=== PATIENT | male | born 1935 | race Caucasian/White ===

== ENCOUNTER 2016-07-25 22:10 | Inpatient (IN) | payer MEDICARE ==
[2016-07-25 22:40] LABS: ABSOLUTE NEUTROPHIL COUNT 5.6 K/mm3 (1.8-7.7); BASO % 0.3 % (0.2-1.0); EOS # 0.1 (0.0-0.5); EOS % 1.2 % (0.9-2.9); HEMOGLOBIN 9.3 gm/l (14.0-18.0); IMM NEUT% 0.6 % (0-1); LYMPH # 0.3 (1.0-4.8); LYMPH % 4.6 % (15-45); MEAN CELL VOLUME 110.7 fl (80.0-94.0); MEAN CORPUSCULAR HEMOGLOBIN 35.5 pg (27.0-31.0); MEAN CORPUSCULAR HGB CONC 32.1 g/dl (33.0-37.0); MEAN PLATELET VOLUME 9.9 fl (7.4-10.4); MONO # 0.5 (0.0-0.8); MONO % 7.1 % (4-12); NEUT % 86.2 % (43-75); PLATELET COUNT 209 K/mm3 (130-400); RED CELL DISTRIBUTION WIDTH 12.8 % (11.5-14.5)
[2016-07-25 23:17] LABS: ALB/GLOB RATIO 0.9 (>1.0); ALBUMIN 3.2 gm/dL (3.5-5.7); CALCIUM 8.6 mg/dL (8.6-10.3)
[2016-07-26] MEDS ORDERED: SODIUM CHLORIDE 0.9% 1,000 ML ONE ×2 (01:29→16:12)
[2016-07-26 01:54] LABS: SPECIFIC GRAVITY 1.015 (1.001-1.030); URINE APPEARANCE CLEAR; URINE BILIRUBIN NEGATIVE (NEGATIVE); URINE BLOOD TRACE (NEGATIVE); URINE COLOR YELLOW; URINE GLUCOSE (UA) NEGATIVE (NEGATIVE); URINE LEUKOCYTE ESTERASE NEGATIVE (NEGATIVE); URINE NITRITE NEGATIVE (NEGATIVE); URINE PROTEIN TRACE (NEGATIVE); URINE UROBILINOGEN NORMAL (0-1 mg/dl)
[2016-07-26 01:59] LABS: URINE EPITHELIAL CELLS FEW /hpf; URINE WBC NEG /hpf
[2016-07-26 02:00] LABS: URINE AMORPHOUS SEDIMENT FEW; URINE BACTERIA 0
[2016-07-26] MEDS ORDERED: IOPAMIDOL 300 (61%) 150 ML VIAL IV ONE (02:52)
[2016-07-26 03:46] VITALS: BMI 22.1
[2016-07-26] MEDS ORDERED: PNEUMOCOCCAL 23-VAL P-SAC VAC 0.5 ML VIAL IM V ONE (05:00)
[2016-07-26] MEDS ORDERED: BLISTEX LIPSTICK 1 EACH TP PRN (07:47)
[2016-07-26] MEDS ORDERED: BISACODYL 5 MG TABLET.EC PO PRN (07:47)
[2016-07-26] MEDS ORDERED: MAGNESIUM HYDROXIDE 30 ML UDCUP PO PRN (07:47)
[2016-07-26] MEDS ORDERED: SODIUM CHLORIDE 0.9% 100 ML IV PRN (07:47)
[2016-07-26] MEDS ORDERED: MENTHOL/CETYLPYRD 1 EACH LOZENGE PO PRN (07:47)
[2016-07-26] MEDS ORDERED: BISACODYL 10 MG SUP PR PRN (07:47)
--- NOTE | 2016-07-26 08:07 | CT ---
LUMBAR CT WITHOUT CONTRAST HISTORY: Weakness of the lower extremities. No intravenous contrast administered. Contiguous axial images acquired from the lower T11 to upper S3 level. FINDINGS: ALIGNMENT: Trace retrolisthesis at L2-3. DISC SPACES: Multilevel disc space narrowing, moderately severe at L2-3 through L4-5 levels. COMPRESSION DEFORMITY: No dominant compression deformity. Minor superior endplate deformity at T12. FRACTURE: No displaced fracture. DISC DEGENERATION: L5-S1: Minor right paracentral protrusion superimposed on minor disc bulge. L4-5: Diffuse disc bulge diffuse disc bulge with broad-based central to left foraminal protrusion. L3-4: Diffuse disc bulge with broad-based left foraminal/extraforaminal protrusion. L2-3: Diffuse disc bulge with foraminal components. L1-2: No focal herniation is present CANAL STENOSIS: Moderate at the L2-3 and L3-4 levels, severe at the L4-5 level. FACET JOINTS: Early facet degeneration at L3-4 and L4-5 levels. NEURAL FORAMINA: Multilevel neural foraminal narrowing of moderate to severe degree involving the L2-3 through L4-5 levels there is a flattened appearance of the left L2, right L3, and left L4 nerve roots, correlate for multilevel radiculopathy. PARASPINAL SOFT TISSUES: Fibrotic changes of the lung bases. Borderline aneurysmal dilatation of the infrarenal abdominal aorta up to 3.2 cm in caliber. Apparent high attenuation content with in the left renal pelvis and ureter of uncertain significance, correlate for history of prior contrast administration. 2.3 cm fatty adenoma of the left adrenal gland. IMPRESSION: 1. Findings of lumbar spondylosis with multilevel disc degeneration worst at the L2-3 through L4-5 levels, resulting in severe canal stenosis at L4-5, moderately severe canal stenosis at L2-3 and L3-4 levels. Associated moderate to severe foraminal narrowing at these levels. 2. Minor endplate deformity at superior aspect of T12 without dominant compression deformity or retropulsion. 3. Aortic atherosclerotic disease with borderline aneurysmal dilatation of the distal abdominal aorta, 3.2 cm in caliber. 4. High attenuation content within left renal pelvis and ureter, perhaps related to recent contrast administration. 5. Fatty adenoma of the left adrenal gland. 6. Suggested fibrotic/atelectatic change at the lung bases. Preliminary report relayed to the emergency medicine medical service by Dr. Greco on 07/26/2016 at 0019 hours.
--- NOTE | 2016-07-26 08:56 | HP ---
Alejandro Domínguez [id number] DATE OF ADMISSION: 07/26/2016 CHIEF COMPLAINT: Weakness. HISTORY OF PRESENT ILLNESS: The patient is an 81-year-old male who presented for weakness. Outside records suggested that patient has been wobbly since starting Amiodarone March 2016 for treatment of ventricular tachycardia. He reports weakness for months, specifically his legs with poor coordination. He denies any prior symptoms. Has not had any medication changes just recently. It is not clear what prompted the presentation to the emergency room although, he did just complete having a cardiac catheterization. PAST MEDICAL HISTORY: Patient initially indicates nothing, but on review of records shows a history of congestive heart failure with ejection fraction of 45%, systolic congestive heart failure, mitral regurgitation, and a history of V-tach. He has an AICD placed. 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 He has a history of coronary artery disease with myocardial infarction suggested in 2007, PAST SURGICAL HISTORY: He had a CABG 2007, AICD placement 2007, and he just had a cardiac catheterization earlier this month, but results are not available. ALLERGIES: No known drug allergies. MEDICATIONS: Best estimate of medicines is: 1. Amiodarone 100 mg daily. 2. Calcium carbonate with vitamin D 1 by mouth twice daily. 3. Carvedilol 12.5 mg by mouth twice daily. 4. Aranesp 100 mcg subcutaneously monthly. 5. Ferrous sulfate 325 mg daily. 6. Simvastatin 20 mg by mouth every evening. 7. He states he does not take aspirin. 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 Lives in [place]. He is . No kids. Quit smoking 30 years ago. No alcohol. Gnosticism, no particular affiliation. Hobbies none. Pets include two cats. FAMILY HISTORY: He reports his parents both about age 82, but does not have any other details. REVIEW OF SYSTEMS: Eyes are okay. Ears are okay although, he appears to be quite hard of hearing. Nose is okay. Mouth is okay. Neck he states bothers him sometimes. Breathing has been okay. He reports having some chest pain 3 or 4 months ago, but not today, but later does say his chest hurts. No urinary complaints. No vomiting. No diarrhea. No skin complaints. He denies any falls. PHYSICAL EXAMINATION: GENERAL: Nontoxic elderly male who is a questionable historian. He coughs occasionally. VITAL SIGNS: Temperature 98.7, pulse 70, blood pressure 138/68, respirations 20, 95% saturation on room air. HEENT: Head is normocephalic, atraumatic. Eyes are unremarkable. Ears: Hard of hearing, some cerumen noted bilaterally. Nose is unremarkable. Oropharynx difficult to assess due to poor opening, but portion visualized is unremarkable. Dentition normal. NECK: Unremarkable. No masses or jugular venous distention suggested. LUNGS: Fair to good air movement bilaterally. HEART: Regular rate and rhythm. He does cough occasionally. Well healed sternotomy scar on his chest. ABDOMEN: Flat, soft, nontender. Bowel sounds are normal. No bruits are noted. Minimal discomfort epigastric area, but no rebound, no guarding. EXTREMITIES: Lower extremities, no clubbing, cyanosis, or edema. Lower extremities without ulceration. GENITOURINARY: Grossly normal male. He has a large patch on his right inguinal area from his cardiac catheterization. NEURO: Patient's cranial nerves appear to be intact and symmetric. Eyes contact is good. He is hard of hearing, but generally answers correctly, although is only a fair too poor historian. Speech is mostly clear. Gait is not tested. Finger to nose is slow bilaterally, but fairly symmetric. He is oriented except for guesses the date of being 18 instead of 26. Rapid alternating movements somewhat slow, but not particularly abnormal. No clonus is noted. No spasticity is noted. Deep tendon reflexes are modestly more noticeable on the left patella, but otherwise no significant abnormality noted. LABORATORY: White count 6.5, hemoglobin 9.3, platelets 209. Sodium 134, potassium 4.2, chloride 99, CO2 28, BUN 23, creatinine 1.6, glucose 97, calcium 8.6. LFT's normal. Albumin 3.2, globulin 3.5. MCV of 110.7. Urinalysis specific gravity of 1.015, red cells 1-3, negative white cells. DIAGNOSTICS: EKG normal sinus rhythm, right bundle branch block, TN of 145, QRS 190, QTC 499, axis -12. CT of back moderate to severe spinal canal stenosis with neuroforaminal narrowing, mild compression fracture T12, consider evaluate further with MRI. ASSESSMENT AND PLAN: 1. Weakness and difficulty with ambulation. Anticipate physical therapy and occupational therapy evaluation. Consider spinal stenosis and could consider follow up MRI, but also would consider subacute cerebrovascular disease and check CT of brain and also consider MRI there as well. 2. History of coronary artery disease. Troponin is normal. Cath was just done. Will try to get cath results from [place]. 3. History of hypertension. Will continue on current medications. 4. Chronic kidney disease, stable. He is off Lisinopril. 5. 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 Patient does get Aranesp regularly. 6. Venous thrombosis prophylaxis. Anticipate patient is low risk. 7. Code status. Patient does not have a POLST form. Anticipate full code status. JOB: [id number] CC: Dr. Juliana Leos
[2016-07-26] MEDS: AMIODARONE HCL 200 MG TABLET PO SCH (09:30)
[2016-07-26 09:42] LABS: C-REACTIVE PROTEIN 4.7 mg/dl (<1.0)
[2016-07-26] MEDS: ACETAMINOPHEN 325 MG TABLET PO PRN ×2 (10:08→20:02)
[2016-07-26] MEDS: CALCIUM CARBONATE 600 MG/VITAMIN D3 400 UNIT/TABLET PO SCH ×2 (10:08→20:01)
[2016-07-26] MEDS: CARVEDILOL 6.25 MG TABLET PO SCH ×2 (10:09→20:01)
[2016-07-26] MEDS: DOCUSATE SODIUM 100 MG CAPSULE PO SCH ×2 (10:09→20:01)
[2016-07-26] MEDS: FERROUS SULFATE (65 Fe) 325 MG TABLET PO SCH (10:09)
--- NOTE | 2016-07-26 10:12 | CT ---
HEAD W/O CON COMPARISON: None HISTORY: Nonspecific weakness. Evaluate for cerebrovascular accident. TECHNIQUE: Using a [employer] Aquilion [address] scanner, images were obtained through the head. An automated dose reduction technique was used to minimize patient radiation dose. DOSE INFORMATION: CTDIvol (mGy): 51.70 DLP(mGycm): 87.30 FINDINGS: Mass: None Intracranial Hemorrhage: None Acute Infarction: None Cerebral hemispheres: Marked atrophy. Basal ganglia: Normal Thalami: Normal Brainstem: Normal Cerebellum: Normal Ventricles: Moderate ventriculomegaly. Basilar cisterns: Normal Corpus callosum: Normal Pituitary fossa: Normal Middle ears and mastoid air cells: Normal Orbits and sinuses: Normal Skull and scalp: Normal Dural sinuses and vessels: Normal IMPRESSION: Marked cerebral atrophy and moderate hydrocephalus. The results were discussed with Mo Castillo M.D. 07/26/2016 at 10:09
--- NOTE | 2016-07-26 13:51 | CT ---
CHEST W/ CON COMPARISON: Portable chest 10/20/2007 HISTORY: Altered mental status, weakness, and elevated temperature. Technique: Intravenous injection 125 mL Isovue 300. Using a [employer] Aquilion [address] scanner, images were obtained through the thorax. An automated dose reduction technique was used to minimize patient radiation dose. Dose information: CTDIvol (mGy): 7.00 DLP(mGycm): 490.80 FINDINGS: Lungs: Ground glass opacities in the dependent portions of both lungs. 7 mm calcific granuloma in the right lower lobe on axial image 37. Support equipment: Pacemaker Trachea and bronchi: Normal. Heart and vessels: Atherosclerosis of the thoracic aorta and the coronary arteries. Mediastinum and na: Normal. Esophagus: Normal. Pleura and pericardium: Normal. Chest wall and bones: Sternotomy wires. Advanced degenerative changes in the spine. IMPRESSION: 1. Bilateral groundglass opacities in the dependent portions of both lungs. Bilateral bronchopneumonia with subsegmental atelectasis. 2. Pacemaker. 3. Atherosclerosis of the aorta and the coronary arteries. 4. Sternotomy wires. Advanced degenerative changes in the spine. The results were discussed with Mo Castillo M.D. 07/26/2016 at 13:48
--- NOTE | 2016-07-26 13:53 | CT ---
ABD/PELVIS W/ CON COMPARISON: None. HISTORY: Altered mental status, weakness, and elevated temperature. Technique: Intravenous injection 125 mL Isovue 300. Using a [employer] Aquilion [address] scanner, images were obtained from the diaphragm to the floor the pelvis. An automated dose reduction technique was used to minimize patient radiation dose. Dose information: CTDIvol (mGy): 7.00 DLP(mGycm): 490.80 FINDINGS: Liver: Normal. Gallbladder:Normal. Bile ducts: Normal. Pancreas: Normal. Spleen: Normal. Adrenal glands: Normal. Kidneys: Severe atrophy of the right kidney. Both kidneys enhance normally and there are bilateral simple renal cysts. No hydronephrosis. Ureters: Normal Urinary bladder: Normal. Prostate gland and seminal vesicles: Normal. Blood vessels: 3.1 x 2.6 cm infrarenal abdominal aortic aneurysm. Atherosclerosis throughout the abdomen and pelvis and the branches of the aorta. Lymph nodes: No lymphadenopathy. Stomach: Normal Duodenum: Fluid-filled mildly distended. Small intestine: Normal Appendix: Normal Colon: Marked fecal loading. Abdominal wall and supporting musculature: Normal Bones: Degenerative changes in the spine. IMPRESSION: 1. No acute finding. 2. Incidental findings include severe atrophy of the right kidney, bilateral renal cysts, 3.1 x 2.6 cm infrarenal abdominal aortic aneurysm, and marked fecal loading of the colon. The results were discussed with Mo Castillo M.D. 07/26/2016 at 13:47 2. Incidental findings include severe atrophy of the right kidney with bilateral simple renal cysts, 3.1 x 2.6 cm infrarenal abdominal aortic aneurysm with extensive atherosclerosis throughout the abdomen and pelvis, mildly distended duodenum, and marked fecal loading consistent with constipation. Degenerative changes in the spine.
[2016-07-26] MEDS ORDERED: AZITHROMYCIN 500 MG in SODIUM CHLORIDE 0.9% 250 ML IV SCH (14:15)
[2016-07-26] MEDS ORDERED: PUMP TUBING ONE (14:40)
[2016-07-26] MEDS: DOXYCYCLINE HYCLATE 100 MG in SODIUM CHLORIDE 0.9% 100 ML IV SCH (14:47)
[2016-07-26] MEDS ORDERED: SODIUM CHLORIDE 0.9% FLUSH 10 ML ONE (16:14)
[2016-07-26] MEDS ORDERED: IV START KIT ONE (16:14)
[2016-07-26] MEDS: CEFTRIAXONE 1 GRAM DUPLEX 1 G in Premix (D5W) 50 ml 1 EACH IV SCH (17:31)
[2016-07-26] MEDS: SODIUM CHLORIDE 0.9% 1,000 ML IV SCH (17:32)
[2016-07-27] MEDS: SODIUM CHLORIDE 0.9% 1,000 ML IV SCH ×4 (01:28→23:30)
[2016-07-27] MEDS: CALCIUM CARBONATE 600 MG/VITAMIN D3 400 UNIT/TABLET PO SCH ×4 (01:29→20:05)
[2016-07-27] MEDS: DOXYCYCLINE HYCLATE 100 MG in SODIUM CHLORIDE 0.9% 100 ML IV SCH ×2 (03:00→14:58)
[2016-07-27 05:55] LABS: ABSOLUTE NEUTROPHIL COUNT 7.2 K/mm3 (1.8-7.7); BASO % 0.1 % (0.2-1.0); HEMATOCRIT 25.3 % (32.0-52.0); HEMOGLOBIN 8.4 gm/l (14.0-18.0); IMM NEUT # 0.1 K/mm3 (0-0.2); LYMPH # 0.5 (1.0-4.8); LYMPH % 5.7 % (15-45); MEAN CELL VOLUME 108.1 fl (80.0-94.0); MEAN CORPUSCULAR HEMOGLOBIN 35.9 pg (27.0-31.0); MEAN CORPUSCULAR HGB CONC 33.2 g/dl (33.0-37.0); MONO # 0.6 (0.0-0.8); MONO % 6.9 % (4-12); NEUT % 86.3 % (43-75); PLATELET COUNT 163 K/mm3 (130-400)
[2016-07-27 06:19] LABS: ALB/GLOB RATIO 0.9 (>1.0); ALBUMIN 2.6 gm/dL (3.5-5.7); CALCIUM 7.8 mg/dL (8.6-10.3)
[2016-07-27] MEDS: DOCUSATE SODIUM 100 MG CAPSULE PO SCH ×2 (09:22→20:05)
[2016-07-27] MEDS: FERROUS SULFATE (65 Fe) 325 MG TABLET PO SCH (09:22)
[2016-07-27] MEDS: CARVEDILOL 6.25 MG TABLET PO SCH ×2 (09:22→20:05)
[2016-07-27] MEDS: AMIODARONE HCL 200 MG TABLET PO SCH (09:23)
--- NOTE | 2016-07-27 11:23 | PDOC43 ---
- Subjective Chief Complaint: Weakness, CAP Patient noted to have fevers yesterday, with continued weakness. CT suggested pneumonia, and influenza testing was negative. Patient reported to have walked 5 feet, and he reports feeling better today. No new c/o, no GI c/o. - Objective Vital Signs Temperature 99.3 F 07/27/16 07:18 Pulse Rate 65 07/27/16 07:18 Respiratory Rate 18 07/27/16 08:00 Blood Pressure 102/46 07/27/16 07:18 O2 Saturation by Pulse Oximetry 96 07/27/16 07:47 Oxygen Delivery Method Room Air Oxygen Flow Rate 0 Vital Signs Last 12 Hours Temp Pulse Resp BP Pulse Ox 07/27/16 08:00 18 07/27/16 07:47 96 07/27/16 07:18 99.3 F 65 18 102/46 96 07/27/16 04:26 98.6 F 60 18 114/49 94 07/27/16 00:37 18 07/26/16 23:37 98.4 F 60 18 100/45 97 Intake and Output 07/25/16 07/26/16 07/27/16 23:59 23:59 23:59 Intake Total 370 2578 Output Total 297 475 Balance 73 2103 General: Alert, Oriented x3, Cooperative, Other (still not a good historian, but seems much better today.), No Acute Distress HEENT: Atraumatic Lungs: Other (some crackles on L lateral lung exam.) Cardiovascular: Regular Rate and Rhythm Abdomen: Soft, Normal Bowel Sounds, Non-Distended Extremities: No Edema, No Tenderness Skin: Normal Color Neurological: Normal Speech Psych/Mental Status: Normal Affect, Other (appears to be feeling much better.) Laboratory 07/27/16 05:30 07/27/16 05:30 07/27/16 05:30 RBC 2.34 L MCV 108.1 H MCH 35.9 H BUN 26 H Estimated GFR 39 L Calcium 7.8 L AST 62 H Total Protein 5.6 L Albumin 2.6 L Albumin/Globulin Ratio 0.9 L Current Medications: Current meds reviewed in EMR. Active Medications Acetaminophen (Tylenol) 650 mg PO Q6H PRN PRN Reason: Pain or Temperature > 100.5 F Last Admin: 07/26/16 20:02 Dose: 650 mg Albuterol Sulfate (Ventolin Inhalation Solution (Dose)) 2.5 mg NEB Q2H PRN PRN Reason: Wheezing Amiodarone HCl (Cordarone) 100 mg PO DAILY [facility] Last Admin: 07/27/16 09:23 Dose: 100 mg Benzocaine/Menthol (Cepacol) 1 each PO PRN PRN PRN Reason: Sore Throat Bisacodyl (Dulcolax) 10 mg IA DAILY PRN PRN Reason: Constipation Bisacodyl (Dulcolax) 5 mg PO DAILY PRN PRN Reason: Constipation Calcium Carbonate (Calcium Carbonate/Vitamin D3) 1 each PO TID [facility] Last Admin: 07/27/16 09:21 Dose: 1 each Carvedilol (Coreg) 12.5 mg PO BID [facility] Last Admin: 07/27/16 09:22 Dose: 12.5 mg Docusate Sodium (Colace) 100 mg PO BID [facility] Last Admin: 07/27/16 09:22 Dose: 100 mg Ferrous Sulfate (Ferrous Sulfate) 325 mg PO DAILY [facility] Last Admin: 07/27/16 09:22 Dose: 325 mg Sodium Chloride (Sodium Chloride 0.9%) 100 mls @ 25 mls/hr IV PRN PRN PRN Reason: Flush Last Admin: 07/26/16 14:48 Dose: 25 mls/hr Ceftriaxone Sodium/Dextrose 1 (g/ Premix (D5W) 50 ml) 50 mls @ 100 mls/hr IV Q24H [facility] Last Admin: 07/26/16 17:31 Dose: 100 mls/hr Doxycycline Hyclate 100 mg/ (Sodium Chloride) 100 mls @ 100 mls/hr IV Q12H [facility] Last Admin: 07/27/16 03:00 Dose: 100 mls/hr Sodium Chloride (Sodium Chloride 0.9%) 1,000 mls @ 100 mls/hr IV .Q10H [facility] Last Admin: 07/27/16 04:29 Dose: Not Given Magnesium Hydroxide (Milk Of Magnesia) 30 ml PO DAILY PRN PRN Reason: Constipation Petrolatum/Paraffin/Mineral Oil (Blistex) 1 each TP PRN PRN PRN Reason: Dry and/or chapped lips Sodium Chloride (Normal Saline 10ml Flush) 10 - 50 ml IV PRN PRN PRN Reason: IV Flush Last Admin: 01/26/17 14:48 Dose: 10 ml Sodium Chloride (Normal Saline 10ml Flush) 10 ml IV Q8HR [facility] Last Admin: 07/27/16 09:25 Dose: Not Given - Problems: Assessment/Plan (1) Community acquired bacterial pneumonia Status: Acute Assessment/Plan: Organism not identified; blood culture neg so far. Present on admission, and suspected as cause of severe weakness. Started on Rocephin and doxycycline 07/26; appears to be doing better today vs admit. (2) Weakness Status: Acute Assessment/Plan: Patient with acute illness, appears to be major contributor; pt now on abx, appears improving. Appreciate PT/OT care. (3) CRF (chronic renal failure) Status: Chronic Assessment/Plan: Cr 1.6->1.7. Recheck in am. (4) History of CHF (congestive heart failure) Status: Chronic Assessment/Plan: Appears stable, compensated. Anticipate check BNP. 61% EF on Myoview this month, but had cardiac cath since then (5) Pernicious anemia Status: Chronic Assessment/Plan: Macrocytic Hb 9.3->8.4 with hydration, illness. Pt had Aranesp (due to renal status) this month; recheck in am. VTE Prophylaxis: enoxaparin Disposition: monitor, hope to DC to home in 1-2 days as strength improves.
[2016-07-27] MEDS ORDERED: ENOXAPARIN SODIUM 30 MG/0.3 ML SYRINGE SUB-Q SCH (12:00)
[2016-07-27] MEDS: ENOXAPARIN SODIUM 40 MG/0.4 ML SYRINGE SUB-Q SCH (12:23)
[2016-07-27] MEDS: CEFTRIAXONE 1 GRAM DUPLEX 1 G in Premix (D5W) 50 ml 1 EACH IV SCH (14:11)
[2016-07-28] MEDS: DOXYCYCLINE HYCLATE 100 MG in SODIUM CHLORIDE 0.9% 100 ML IV SCH ×2 (03:54→15:19)
[2016-07-28 06:20] LABS: ABSOLUTE NEUTROPHIL COUNT 4.8 K/mm3 (1.8-7.7); BASO % 0.2 % (0.2-1.0); EOS % 0.2 % (0.9-2.9); HEMATOCRIT 26.3 % (32.0-52.0); HEMOGLOBIN 8.5 gm/l (14.0-18.0); IMM NEUT% 0.5 % (0-1); LYMPH # 0.5 (1.0-4.8); LYMPH % 8.5 % (15-45); MEAN CELL VOLUME 108.7 fl (80.0-94.0); MEAN CORPUSCULAR HEMOGLOBIN 35.1 pg (27.0-31.0); MEAN CORPUSCULAR HGB CONC 32.3 g/dl (33.0-37.0); MEAN PLATELET VOLUME 10.5 fl (7.4-10.4); MONO # 0.3 (0.0-0.8); MONO % 5.7 % (4-12); NEUT % 84.9 % (43-75); PLATELET COUNT 163 K/mm3 (130-400); RED CELL DISTRIBUTION WIDTH 13.1 % (11.5-14.5)
[2016-07-28 06:43] LABS: ALB/GLOB RATIO 0.9 (>1.0); ALBUMIN 2.6 gm/dL (3.5-5.7); CALCIUM 8.3 mg/dL (8.6-10.3)
[2016-07-28] MEDS: ALBUTEROL NEB 2.5 MG/3 ML VIAL.NEB NEB PRN ×2 (08:41→14:51)
[2016-07-28] MEDS: CALCIUM CARBONATE 600 MG/VITAMIN D3 400 UNIT/TABLET PO SCH ×3 (09:44→20:25)
[2016-07-28] MEDS: DOCUSATE SODIUM 100 MG CAPSULE PO SCH ×2 (09:45→20:25)
[2016-07-28] MEDS: AMIODARONE HCL 200 MG TABLET PO SCH (09:45)
[2016-07-28] MEDS: FERROUS SULFATE (65 Fe) 325 MG TABLET PO SCH (09:45)
[2016-07-28] MEDS: CARVEDILOL 6.25 MG TABLET PO SCH ×2 (09:45→20:28)
[2016-07-28] MEDS: SODIUM CHLORIDE 0.9% 1,000 ML IV SCH ×2 (09:47→21:24)
[2016-07-28] MEDS: ENOXAPARIN SODIUM 40 MG/0.4 ML SYRINGE SUB-Q SCH (12:14)
[2016-07-28] MEDS: CEFTRIAXONE 1 GRAM DUPLEX 1 G in Premix (D5W) 50 ml 1 EACH IV SCH (14:21)
--- NOTE | 2016-07-28 16:28 | PDOC43 ---
- Subjective Chief Complaint: Weakness, CAP pt notes feeling ok. no new issues. breathing OK. he notes no cough. no pain reported. Subjective: Reports Pain Tolerable, Reports Tolerating Diet Well, Reports Adequate Oral Intake, Reports Urinating Without Difficulty, Denies Shortness of Breath, Denies Cough, Denies Chest Pain, Denies Abdominal Pain, Denies Nausea, Denies Vomiting, Denies Fever, Denies Chills - Objective Vital Signs Temperature 98.6 F 07/28/16 11:42 Pulse Rate 60 07/28/16 14:51 Respiratory Rate 24 07/28/16 14:51 Blood Pressure 131/62 07/28/16 11:42 O2 Saturation by Pulse Oximetry 97 07/28/16 11:42 Oxygen Delivery Method Room Air Oxygen Flow Rate 0 Intake and Output 07/26/16 07/27/16 07/28/16 23:59 23:59 23:59 Intake Total 370 4216 1460 Output Total 297 900 425 Balance 73 3316 1035 General: Alert, Oriented x3, Cooperative, No Acute Distress HEENT: Atraumatic, Mucous membr. moist/pink Lungs: Normal Air Movement (good air movement despite wheezing), No Clear to Auscultation Bilaterally (BL wheezes) Cardiovascular: Regular Rate and Rhythm, Normal S1, Normal S2, No Murmur Abdomen: Soft, Normal Bowel Sounds, Non-Distended, No Tenderness Extremities: No Cyanosis, No Edema, No Tenderness Skin: Warm, Dry, Intact Neurological: Normal Speech Psych/Mental Status: Normal Affect, Normal Mood Laboratory 07/28/16 05:15 07/28/16 05:15 07/28/16 05:15 RBC 2.42 L MCV 108.7 H MCH 35.1 H MCHC 32.3 L BUN 29 H Estimated GFR 42 L Calcium 8.3 L AST 116 H ALT 113 H B-Natriuretic Peptide 566 H Total Protein 5.6 L Albumin 2.6 L Albumin/Globulin Ratio 0.9 L Current Medications: Current meds reviewed in EMR. - Problems: Assessment/Plan (1) Community acquired bacterial pneumonia Status: Acute Assessment/Plan: Organism not identified; blood culture neg so far. Present on admission, and suspected as cause of severe weakness. Started on Rocephin and doxycycline 07/26; appears to be improving slowly. (2) Weakness Status: Acute Assessment/Plan: Patient with acute illness, appears to be major contributor; pt now on abx, appears improving. Appreciate PT/OT care. Plan for SNF on DC (3) History of CHF (congestive heart failure) Status: Chronic Assessment/Plan: Appears stable, compensated. BNP ok, a bit elevated. 61% EF on Myoview this month, but had cardiac cath since then (4) CRF (chronic renal failure) Qualifiers: Chronic kidney disease stage: unspecified stage Qualifier Code: (N18.9 ) Chronic kidney disease, unspecified Status: Chronic Assessment/Plan: Cr 1.6->1.7. stable (5) Pernicious anemia Status: Chronic Assessment/Plan: Macrocytic Hb 9.3-> 8.4 with hydration, illness. Pt had Aranesp (due to renal status) this month; recheck in am. VTE Prophylaxis: enoxaparin Disposition: DC to SNF plan in 2 days
[2016-07-28] MEDS: ALBUTEROL/IPRATROPIUM 2.5/0.5 MG 3 ML/EACH DOSE NEB SCH (19:43)
[2016-07-29] MEDS: DOXYCYCLINE HYCLATE 100 MG in SODIUM CHLORIDE 0.9% 100 ML IV SCH ×2 (02:51→15:23)
[2016-07-29 06:04] LABS: HEMATOCRIT 26.6 % (32.0-52.0); HEMOGLOBIN 8.6 gm/l (14.0-18.0); MEAN CELL VOLUME 108.6 fl (80.0-94.0); MEAN CORPUSCULAR HEMOGLOBIN 35.1 pg (27.0-31.0); MEAN CORPUSCULAR HGB CONC 32.3 g/dl (33.0-37.0); RED CELL DISTRIBUTION WIDTH 12.9 % (11.5-14.5)
[2016-07-29 06:20] LABS: CALCIUM 8.3 mg/dL (8.6-10.3)
[2016-07-29] MEDS: CALCIUM CARBONATE 600 MG/VITAMIN D3 400 UNIT/TABLET PO SCH ×3 (08:26→20:27)
[2016-07-29] MEDS: AMIODARONE HCL 200 MG TABLET PO SCH (08:27)
[2016-07-29] MEDS: DOCUSATE SODIUM 100 MG CAPSULE PO SCH ×2 (08:28→20:27)
[2016-07-29] MEDS: FERROUS SULFATE (65 Fe) 325 MG TABLET PO SCH (08:28)
[2016-07-29] MEDS: CARVEDILOL 6.25 MG TABLET PO SCH ×2 (08:28→20:27)
[2016-07-29] MEDS: ALBUTEROL/IPRATROPIUM 2.5/0.5 MG 3 ML/EACH DOSE NEB SCH ×4 (08:42→19:41)
[2016-07-29] MEDS ORDERED: FUROSEMIDE 40 MG/4 ML VIAL IV ONE (08:51)
--- NOTE | 2016-07-29 08:55 | PDOC43 ---
- Subjective Chief Complaint: Weakness, CAP pt notes he is coughing a bit more today. scheduled nebs are helping however. RT concerned pt sounding wet. Subjective: Reports Pain Tolerable, Reports Tolerating Diet Well, Reports Adequate Oral Intake, Reports Bowel Movement, Reports Urinating Without Difficulty, Reports Shortness of Breath, Reports Cough, Denies Chest Pain, Denies Abdominal Pain, Denies Nausea, Denies Vomiting, Denies Fever, Denies Chills - Objective Vital Signs Temperature 97.8 F 07/29/16 07:29 Pulse Rate 66 07/29/16 07:29 Respiratory Rate 18 07/29/16 07:29 Blood Pressure 150/64 07/29/16 07:29 O2 Saturation by Pulse Oximetry 94 07/29/16 07:29 Oxygen Delivery Method Room Air Oxygen Flow Rate 0 Intake and Output 07/27/16 07/28/16 07/29/16 23:59 23:59 23:59 Intake Total 4216 3243 1155 Output Total 900 875 375 Balance 3316 2368 780 General: Alert, Cooperative, No Oriented x3 (self and place), No Acute Distress Lungs: Diminished at Bases, No Clear to Auscultation Bilaterally (wetter sounds today. BL diffuse wheezes as well. pt getting nebulizer treatment at time of visit), No Normal Air Movement Cardiovascular: Regular Rate and Rhythm, Normal S1, Normal S2, No Murmur Abdomen: Soft, Normal Bowel Sounds, Non-Distended Extremities: Edema (trace in ankles), No Cyanosis, No Tenderness Neurological: Normal Speech Psych/Mental Status: Normal Affect, Normal Mood Laboratory 07/29/16 05:10 07/29/16 05:10 07/29/16 05:10 RBC 2.45 L MCV 108.6 H MCH 35.1 H MCHC 32.3 L BUN 27 H Estimated GFR 49 L Calcium 8.3 L Current Medications: Current meds reviewed in EMR. - Problems: Assessment/Plan (1) Community acquired bacterial pneumonia Status: Acute Assessment/Plan: Organism not identified; blood culture neg so far. Present on admission, and suspected as cause of severe weakness. Started on Rocephin and doxycycline 07/26; appears to be improving slowly. (2) Weakness Status: Acute Assessment/Plan: Patient with acute illness, appears to be major contributor; pt now on abx, appears improving. Appreciate PT/OT care. Plan for SNF on DC (3) History of CHF (congestive heart failure) Status: Chronic Assessment/Plan: Appears stable, compensated. BNP ok, a bit elevated. 61% EF on Myoview this month, but had cardiac cath since then today is sounding a bit wet in lungs. give lasix 40mg IV x1 and stop IVF (4) CRF (chronic renal failure) Qualifiers: Chronic kidney disease stage: unspecified stage Qualifier Code: (N18.9 ) Chronic kidney disease, unspecified Status: Chronic Assessment/Plan: stable at baseline (5) Pernicious anemia Status: Chronic Assessment/Plan: Macrocytic Hb 9.3-> 8.4 with hydration, illness. Pt had Aranesp (due to renal status) this month; stable on recheck. VTE Prophylaxis: enoxaparin Disposition: DC to SNF plan in 1-2 days
[2016-07-29] MEDS: SODIUM CHLORIDE 0.9% 1,000 ML IV SCH (10:46)
[2016-07-29] MEDS: ENOXAPARIN SODIUM 40 MG/0.4 ML SYRINGE SUB-Q SCH (11:58)
[2016-07-29] MEDS: CEFTRIAXONE 1 GRAM DUPLEX 1 G in Premix (D5W) 50 ml 1 EACH IV SCH (14:33)
[2016-07-29] MEDS ORDERED: SODIUM CHLORIDE 0.9% FLUSH 10 ML ONE (15:00)
[2016-07-29] MEDS ORDERED: IV START KIT ONE (15:01)
[2016-07-30] MEDS: DOXYCYCLINE HYCLATE 100 MG in SODIUM CHLORIDE 0.9% 100 ML IV SCH ×2 (02:31→15:54)
[2016-07-30] MEDS ORDERED: IV START KIT ONE (03:50)
[2016-07-30 07:10] LABS: CALCIUM 8.5 mg/dL (8.6-10.3)
[2016-07-30 07:21] LABS: ABSOLUTE NEUTROPHIL COUNT 3.6 K/mm3 (1.8-7.7); BASO % 0.2 % (0.2-1.0); HEMATOCRIT 25.1 % (32.0-52.0); HEMOGLOBIN 8.4 gm/l (14.0-18.0); IMM NEUT% 0.6 % (0-1); LYMPH # 0.8 (1.0-4.8); LYMPH % 16.6 % (15-45); MEAN CELL VOLUME 106.4 fl (80.0-94.0); MEAN CORPUSCULAR HEMOGLOBIN 35.6 pg (27.0-31.0); MEAN CORPUSCULAR HGB CONC 33.5 g/dl (33.0-37.0); MEAN PLATELET VOLUME 10.2 fl (7.4-10.4); MONO # 0.5 (0.0-0.8); MONO % 9.9 % (4-12); NEUT % 72.7 % (43-75); PLATELET COUNT 150 K/mm3 (130-400); RED CELL DISTRIBUTION WIDTH 12.9 % (11.5-14.5)
[2016-07-30] MEDS: ALBUTEROL/IPRATROPIUM 2.5/0.5 MG 3 ML/EACH DOSE NEB SCH ×2 (08:21→12:52)
[2016-07-30] MEDS: CARVEDILOL 6.25 MG TABLET PO SCH (08:59)
[2016-07-30] MEDS: FERROUS SULFATE (65 Fe) 325 MG TABLET PO SCH (08:59)
[2016-07-30] MEDS: DOCUSATE SODIUM 100 MG CAPSULE PO SCH (09:00)
[2016-07-30] MEDS: CALCIUM CARBONATE 600 MG/VITAMIN D3 400 UNIT/TABLET PO SCH (09:00)
[2016-07-30] MEDS: AMIODARONE HCL 200 MG TABLET PO SCH (09:00)
[2016-07-30 11:05] VITALS: BP 129/62
[2016-07-30] MEDS: ENOXAPARIN SODIUM 40 MG/0.4 ML SYRINGE SUB-Q SCH (13:35)
[2016-07-30] MEDS: CEFTRIAXONE 1 GRAM DUPLEX 1 G in Premix (D5W) 50 ml 1 EACH IV SCH (15:00)
--- NOTE | 2016-07-30 18:40 | DS ---
SHIVA CLARK [id number] DATE OF ADMISSION: July 26, 2016 DATE OF DISCHARGE: July 30, 2016 DISPOSITION: To [facility] DISCHARGE DIAGNOSES: 1. Community acquired bacterial pneumonia, organism unspecified. 2. Generalized weakness likely secondary to the pneumonia. 3. Mild fluid overload due to IV fluids. 4. Chronic stage 3 kidney disease. 5. Chronic pernicious anemia. 6. Coronary artery disease, stable. SUMMARY OF ADMISSION AND HOSPITAL COURSE: The patient is an 81-year-old male who presented with complaints of generalized weakness. Workup in the emergency department included CT scan of the chest, abdomen and pelvis as well as laboratory studies, and a CT of the brain with findings of bilateral ground glass opacities in the dependent portions of both lungs consistent with bronchopneumonia. He had marked cerebral atrophy but no acute findings on the CT of the brain. He had a CT of the lumbar spine because of his weakness with no acute problems but evidence of lumbar spondylosis and multilevel disc degeneration, and moderately severe canal stenosis at multiple levels. He was admitted to the hospitalist service and treated with Rocephin and doxycycline. He had no fever during his stay, no significant hypoxia during his stay. He received physical therapy and occupational therapy and some improvement in his weakness with treatment. His renal function remained stable during his stay with an admitting creatinine of 1.6 and a creatinine of 1.5 at discharge. He was discharged to [facility] as mentioned above on July 30, 2016 as he was felt to be medically stable. PHYSICAL EXAM: VITAL SIGNS: His discharge vital signs showed a temperature of 97.9, pulse 61, blood pressure is 129/62, respirations 20, oxygen saturation 96% on room air. Body mass index 22.1. Weight 70 kilograms. GENERAL: This is an elderly male in no acute distress. HEENT: Is unremarkable. LUNGS: Are clear to auscultation bilaterally. CARDIOVASCULAR: Exam reveals a regular rate and rhythm without a murmur. ABDOMEN: Is soft, nontender, nondistended with positive bowel sounds. EXTREMITIES: Show no peripheral edema. LABORATORY STUDIES: On the day of discharge, CBC showed a white count of 4.9, hemoglobin of 8.4, and a platelet count of 150,000. Chemistry profile showed a sodium 136, potassium 3.7, BUN 27, creatinine 1.5. DISCHARGE MEDICATIONS: 1. Coreg 12.5 mg orally twice daily. 2. Amiodarone 100 mg orally daily. 3. Iron sulfate 325 mg orally daily. 4. Aranesp 100 mcg subcutaneous every 28 days. 5. Simvastatin 20 mg every evening. 6. Calcium carbonate with vitamin D one three times daily. 7. Enteric coated aspirin 81 mg daily. 8. Doxycycline 100 mg twice daily for five more days. 9. Ceftin 500 mg twice daily for five more days. IMMUNIZATIONS: He received a pneumonia vaccine on July 27, 2016. FOLLOWUP: He will be followed by the house doctor at the [facility]. He has followup scheduled with Dr. Levy on August 23, 2016 at 11:00 a.m. with regard to his heart. Cc: Ziyad Levy M.D.
[2016-07-30] MEDS ORDERED: SIMVASTATIN 20 MG TABLET PO SCH (20:00)
[2016-07-31] MEDS ORDERED: ASPIRIN (ENTERIC COATED) 81 MG TABLET.EC PO SCH (09:00)
== END 2016-07-30 17:10 | DRG 194 ==
LOC: ED 22:10 → MS 07-26 02:51 → OBSVTOIN 07-26 14:32
PROVIDERS: ADMIT Family Medicine; ATTEND Family Medicine
PROC: 3E0234Z Introduction of Serum, Toxoid and Vaccine into Muscle, Percutaneous Approach (ICD-10-PCS; principal; 2016-07-27)
DX: J15.9 Unspecified bacterial pneumonia (principal); I13.0 Hypertensive heart and chronic kidney disease with heart failure and stage 1 through stage 4 chronic kidney disease, or unspecified chronic kidney disease; I50.42 Chronic combined systolic (congestive) and diastolic (congestive) heart failure; G91.9 Hydrocephalus, unspecified; I25.10 Atherosclerotic heart disease of native coronary artery without angina pectoris; N18.3 Chronic kidney disease, stage 3 (moderate); D53.9 Nutritional anemia, unspecified; R53.1 Weakness; M51.36 Other intervertebral disc degeneration, lumbar region; I70.0 Atherosclerosis of aorta; G31.9 Degenerative disease of nervous system, unspecified; J18.0 Bronchopneumonia, unspecified organism; Z95.0 Presence of cardiac pacemaker; N28.1 Cyst of kidney, acquired; N26.1 Atrophy of kidney (terminal); Z23 Encounter for immunization

== ENCOUNTER 2016-09-23 22:19 | Emergency (ER) | payer MEDICARE ==
[2016-09-23] MEDS ORDERED: IBUPROFEN 600 MG TABLET ONE (23:01)
--- NOTE | 2016-09-24 08:06 | RAD ---
SHOULDER-LEFT 2 OR MORE VIEWS History: Ground-level fall with shoulder pain. Comparison: None. Findings: Views of the left shoulder demonstrate normal bony mineralization. The visualized osseous structures appear to be intact. The glenohumeral alignment is appropriate. The acromiohumeral distance is well maintained. There is the suggestion of subtle calcification within the expected location of the distal rotator cuff. The AC joint is not widened. There is a dual-lead pacing device projecting over the upper left-sided hemithorax. There is also evidence of prior median sternotomy. Patchy airspace density suggested within the left pulmonary base. Impression: 1. No definitive fracture visualized. 2. Subtle calcific tendinitis of the distal rotator cuff. 3. Prior median sternotomy with a dual-lead pacing device projecting over the upper left hemithorax. 4. Left basilar opacity which may reflect atelectasis or early infiltrate.
== END 2016-09-23 23:33 | disposition home or self-care (01) ==
LOC: ED 22:19
DX: S46.912A Strain of unspecified muscle, fascia and tendon at shoulder and upper arm level, left arm, initial encounter (principal); W19.XXXA Unspecified fall, initial encounter; Y92.009 Unspecified place in unspecified non-institutional (private) residence as the place of occurrence of the external cause
CPT/HCPCS: 73030; 99283 ×2; A9270